=== PATIENT | male | born 1990 | race Caucasian/White ===

== ENCOUNTER → 2021-07-24 | Outpatient (CLI) | payer OTHER ==
[2021-07-24 12:46] LABS: Appearance,Urine Clear (Clear); Bilirubin,Urine Negative (Negative); Blood,Urine Negative (Negative); Color,Urine Yellow; Glucose,Urine (UA) Negative (Negative); Ketones,Urine Negative (Negative); Leukocyte Esterase,Urine Negative (Negative); Nitrite,Urine Negative (Negative); PH, Urine 5.5 (5.0-8.0); Protein,Urine Negative (Negative); Specific Gravity,Urine 1.029 (1.001-1.035); Urobilinogen,Urine <2.0 mg/dL (<2.0)
[2021-07-24 19:35] LABS: HCT 50.5 % (39.6-50.0); HGB 17.2 g/dL (13.0-17.0); MCH 30.9 pg (27.0-32.0); MCHC 34.1 g/dL (32.0-37.0); MCV 90.8 fL (80.0-97.0); Mean Platelet Volume 10.6 fL (9.5-12.2); Platelet Count 197 X 10*3/uL (140-440); RBC 5.56 X 10*6/uL (4.40-5.60); RDW 12.3 % (11.5-14.5); WBC 5.26 X 10*3/uL (4.50-10.00)
[2021-07-24 20:11] LABS: ALT 24 U/L (10-49); AST 19 U/L (14-35); African American GFR (CKD) 119.2 (60.0-200.0); Albumin 5.3 g/dL (3.8-4.9); Albumin/Globulin Ratio 2.22 (1.60-3.17); Alkaline Phosphatase 63 U/L (41-126); BUN/Creat Ratio 17.63 Ratio (12.00-20.00); Blood Urea Nitrogen 17.4 mg/dL (9.0-27.0); Carbon Dioxide 24.5 mmol/L (20.0-27.5); Chloride 103 mmol/L (96-109); Chol/HDL Ratio 4.38 Ratio; Globulin 2.4 g/dL (1.6-3.3); Glucose 107 mg/dL (70-110); LDL Cholesterol,Calculated 143.8 mg/dL (0.0-131.0); Non-African American GFR(CKD) 102.9 (60.0-200.0); Potassium 4.8 mmol/L (3.5-5.5); Sodium 141 mmol/L (135-145); Total Protein 7.6 g/dL (6.2-8.2)
== END | disposition home or self-care (01) ==
LOC: LABWHC1 10:32
PROVIDERS: ATTEND Family Medicine
DX: Z00.00 Encounter for general adult medical examination without abnormal findings (principal); I10 Essential (primary) hypertension; F90.9 Attention-deficit hyperactivity disorder, unspecified type
CPT/HCPCS: 36415; 80053; 80061; 81003; 83036; 84439; 84443; 85027